=== PATIENT | male | born 1945 | race Caucasian/White ===

== ENCOUNTER 2018-12-16 09:12 | Emergency (ER) | payer MEDICARE ==
[~2018-12-16] VITALS: Ht 188 cm; Wt 97.5 kg
[2018-12-16 09:31] VITALS: BP 137/85
[2018-12-16] MEDS ORDERED: LIDOCAINE-MPF 1%, 5ML ONE (10:00)
[2018-12-16] MEDS ORDERED: LIDOCAINE-MPF 1%, 5ML INFIL ONE (10:00)
[2018-12-16] MEDS ORDERED: DIPH,PERTUSS(ACELL),TET VAC/PF 0.5 ML IM-VACC ONE ×2 (10:59→11:00)
[2018-12-16] MEDS ORDERED: BACITRACIN ZINC OINT 500U/GM, 0.9 GM ONE (11:30)
== END 2018-12-16 11:47 | disposition home or self-care (01) ==
LOC: ED 11:40
DX: S61.512A Laceration without foreign body of left wrist, initial encounter (principal); W20.8XXA Other cause of strike by thrown, projected or falling object, initial encounter; Y93.89 Activity, other specified; Y92.59 Other trade areas as the place of occurrence of the external cause; Y99.8 Other external cause status
CPT/HCPCS: 12031; 90471; 90715